=== PATIENT | female | born 1940 | race Caucasian/White ===

== ENCOUNTER 2021-05-18 18:22 | Inpatient (IN) | payer MEDICARE, SELFPAY ==
[2021-05-18 20:02] VITALS: BMI 23.3
[2021-05-18 20:04] VITALS: BP 121/75; PULSE 67; RESP 16; TEMP 36.3; O2SAT 97
--- NOTE | 2021-05-18 21:28 | HP.PCM_ITS ---
HPI - General General Date of Admission: 05/18/21 HPI Narrative 05/13/2021 DELICIA WATERMAN, is a 80 Female who presents to [facility] Emergency Department with fall. Fall, right shoulder fracture, dizziness. Several falls over last few months. Seen in [place] ER, fracture surgical neck left shoulder. Weak, unable to care for self. Feels dizzy when standing up. UA negative, TSH 139, patient stopped taking Synthroid. Check orthostatic vital signs for dizziness. Orthopedics recommended conservative treatment of left shoulder fracture. PT/OT for debility. 05/14/2021 Orthopedics recommends sling left shoulder fracture. 05/15/2021 Gradual mobilize as healing allows. Reduce Losartan foor orthostatic hypotension. 05/18/2021 Admit to TCU with debility, here for rehabilitation, strengthening, prior to discharge home alone. PFSH Allergy/AdvReac Type Severity Reaction Status Date / Time codeine AdvReac Nausea/Vom/ Verified 05/18/21 20:05 Diarrhea Family History (Updated 05/18/21 @ 21:[address] Edgardo Maldonado MD) Mother Diabetes Hypertension CAD (coronary artery disease) Osteoarthritis Father CAD (coronary artery disease) Osteoarthritis Sister Hypertension Surgical History (Updated 05/18/21 @ 21:[address] Edgardo Maldonado MD) History of appendectomy History of hysterectomy History of repair of rectocele Social History (Updated 05/18/21 @ 21:[address] Edgardo Maldonado MD) household members: none Smoking Status: Former smoker alcohol intake: current alcohol intake frequency: a few times a week Alcohol type: other details: Mixed drinks substance use type: does not use ROS Constitutional Constitutional: Denies chills, fever(s) or weight gain ENT HEENT: Denies headache(s), nasal congestion or nasal discharge Cardiovascular Cardiovascular: Denies chest pain or palpitations Respiratory/Chest Respiratory/Chest: Denies cough, excessive phlegm production or shortness of breath with exertion Gastrointestinal Gastrointestinal: Denies abdominal pain, nausea or vomiting Genitourinary Genitourinary: Denies dysuria Musculoskeletal Musculoskeletal: Denies joint pain or joint swelling Integumentary Integumentary: Denies rash or wounds Neurologic Neurologic: Denies focal weakness, numbness or tingling Psychiatric Psychiatric: Denies anxiety, auditory hallucinations, depression, homicidal idea tion or suicidal ideation Vital Signs Vital Signs Vital Signs: 05/18/21 18:48 05/18/21 20:04 Temperature 97.4 F L Temperature Source Temporal Pulse Rate 67 Pulse Rhythm Regular Pulse Strength Normal (2+) Respiratory Rate 16 Respiratory Effort Normal Non-Labored Respiratory Depth Normal Respiratory Pattern Normal Blood Pressure 121/75 H Blood Pressure Mean 90 Blood Pressure Source Monitor Blood Pressure Position Supine Blood Pressure Location Right Arm Pulse Ox 97 Oxygen Delivery Method Room Air Room Air Weight Weight: 62.596 kg Body Mass Index (BMI) 23.3 Physical Exam Const alert and oriented x3 General Appearance: cooperative HEENT normocephalic Eyes PERRL and EOMs intact bilaterally Neck supple, no JVD and no carotid bruits Resp normal respiratory effort, normal air movement and clear to auscultation bilaterally Cardio regular rate and regular rhythm GI normal to inspection, nondistended, normoactive bowel sounds, non-tender and non-distended Extremity normal capillary refill Extremity Narrative: Sling LUE. General Extremity: Negative for edema Skin no rashes or lesions noted General Skin Exam: no breakdown Psych affect normal Appearance: appropriate Results Lab / Micro Data Result Diagrams: 05/19/21 05:11 05/19/21 05:11 Assessment & Plan Assessment/Plan (1) Debility: (2) Fall: (3) Shoulder fracture, left: (4) Dizziness: (5) Hyponatremia: (6) Hypothyroidism: (7) Orthostatic hypotension: (8) Anemia: (9) Chronic obstructive pulmonary disease: (10) Gastrointestinal bleeding: (11) Hypertension: PLAN: 80 year old female with below past medical history hospitalized for fall, left shoulder fracture treated with sling, complicated by dizziness secondary to orthostatic hypotension, admitted to TCU with debility, here for rehabilitation, strengthening, prior to discharge home alone. * Debility - PT/OT. * Pain - Tylenol 1000mg q6h prn pain (1-5), Oxycodone 5mg q4h prn pain (6-10). * Bowel - Miralax 17gm daily, Senna/colace 1 tablet bid, Dulcolax 10mg daily prn. * Adult immunization - Administer prevnar 20, fluzone, covid19 vaccine as appropriate. * DVT prophylaxis - Hold, history GI bleeding. * Atrial fibrillation - Amiodarone 200mg daily, Aspirin 81mg daily. * Depression - Bupropion SR 100mg daily, Venlafaxine XR 75mg daily, stable chronic senior care use, GDR not recommended. * Calcium deficiency - Calcium 625mg daily. * Vitamin B12 deficiency - B12 1000mcg daily. * Tinea Corporis - Ketoconazole cream topical daily. * Hypothyroidism - Levothyroxine 50mcg daily, follow TSH, resident had stopped taking her Levothyroxine. * Hypertension - Losartan 25mg daily. * Hypomagnesemia - Magnesium Chloride 128mg bid. * Nausea - Ondansetron 8mg q8h prn. * GERD - Pantoprazole 20mg daily. * Leg cramps - Vitamin B complex 1 capsule daily. * Hyponatremia - Monitor.
[2021-05-19 05:34] LABS: Absolute Lymphocyte Count 0.31 X10^3/uL (0.83-4.51); Absolute Neutrophil Count 4.6 X10^3/uL (2.0-7.7); Basophil# 0.02 X10^3/uL; Basophil% 0.4 % (0-1); Eosinophil# 0.11 X10^3/uL; Hematocrit 26.4 % (37-47); Lymphocyte # 0.31 X10^3/ul (0.83-4.51); Lymphocyte % 5.6 % (19-41); Mean Corp Hgb Conc 34.1 g/dL (32-36); Mean Corpuscular Hgb 31.3 pg (27.0-32.0); Mean Corpuscular Volume 91.7 fL (81-99); Mean Platelet Vol. 8.9 fl (6.2-12.0); Monocyte# 0.39 X10^3/uL; Monocyte% 7.1 % (0-10); NRBC Flagged by Analyzer 0 % (0-5); Neutrophil # 4.61 X10^3/uL (2.7-7.7); Neutrophil % 83.8 % (47-70); POSITIVE DIFFERENTIAL YES; Platelet Count 214 K/mm3 (150-450); RBC Distribution Width CV 13.9 % (11.6-14.6); Red Blood Count 2.88 M/mm3 (4.2-5.4); White Blood Count 5.5 K/mm3 (4.4-11.0)
[2021-05-19 05:42] LABS: Differential Indicated SCAN CRITERIA MET
[2021-05-19 05:58] LABS: Anion Gap 7 (5-15); BUN 29 mg/dL (7-18); BUN/Creat Ratio 39.6 RATIO (10-20); Calcium,Total 8.4 mg/dL (8.5-10.1); Chloride 95 mmol/L (98-107); Creatinine, Serum 0.73 mg/dL (0.55-1.02); EST Glomerular Filtration Rate 81 mL/min (>60); Est Glom Filt Rate - Afr Amer 98 mL/min (>60); Glucose 106 mg/dL (74-106); Potassium 4.1 mmol/L (3.5-5.1); Sodium Level 128 mmol/L (136-145)
[2021-05-19] MEDS: oxyCODONE 5 MG Tablet PO (06:39)
[2021-05-19] MEDS: Venlafaxine XR 75 MG Capsule PO (06:41)
[2021-05-19] MEDS: Senna/Docusate Sodium 1 Tablet PO ×2 (06:41→17:04)
[2021-05-19] MEDS: buPROPion (SR) 100 MG TABLET.SA PO (06:42)
[2021-05-19] MEDS: Losartan Potassium 25 MG Tablet PO (06:42)
[2021-05-19] MEDS: Pantoprazole Sodium 40 MG Tablet PO (06:43)
[2021-05-19] MEDS: Polyethylene Glycol 3350 17 GM PACKET PO (06:43)
[2021-05-19] MEDS: Levothyroxine 50 MCG Tablet PO (06:43)
--- NOTE | 2021-05-19 06:55 | NURSING ---
Pt does not recall an order for ketoconazole cream in the past. Denies that staff from outside hospital was applying an type of cream. Will hold at this time.
[2021-05-19 07:42] VITALS: BP 130/67; PULSE 67
[2021-05-19] MEDS: Amiodarone 200 MG Tablet PO (08:40)
[2021-05-19] MEDS: Vitamin B Comp W-C Capsule 1 CAP PO (08:40)
[2021-05-19] MEDS: Aspirin 81 MG TAB.CHEW PO (08:40)
[2021-05-19] MEDS: Magnesium Chloride 64 MG Delay Rel.Tablet 128 MG PO ×2 (08:41→17:04)
[2021-05-19] MEDS: Cyanocobalamin 500 MCG Tablet 1000 MCG PO (08:41)
[2021-05-19 08:48] VITALS: BP 112/61; PULSE 68
--- NOTE | 2021-05-19 10:06 | WOUNDNOTE ---
Was asked by nursing to see patient d/t colostomy. Pt states she typically cares for the appliance herself. states she has had the colostomy for approx 1 year. states the appliance is changed every 3-4 days. removed the ostomy appliance. there was a small amount of soft brown stool noted in the appliance. stoma is pink and moist. peristomal skin is intact. stoma is well budded. cleansed skin with warm water. pat dry. applied a new two piece [place] appliance. pt tolerated well. plan to use the floor stock appliances which are very similar to what the patient uses at home. pt agreeable. no further needs or concerns voiced at this time.
[2021-05-19] MEDS: Tuberculin,Purif.prot.deriv. 50 TU/ML Vial 0.1 ML ID (10:07)
--- NOTE | 2021-05-19 11:24 | NURSING ---
Resident educated on the COVID 19 Vaccine and does not want to receive it.
--- NOTE | 2021-05-19 11:56 | CASEMGMT ---
Social Work SW met w/pt in room, assessment completed. Daughter Munira arrived just as SW was completing assessment. SW reviewed CODE status, pt asked to have it changed to DNRCC-A, RN made aware. MOLST form completed, communication to physician, placed in chart. Pt's goal is to return home alone, is open to home health care. SW did educate pt that the next review date with her insurance is 05/21/21, and insurance will determine at that time how much longer they will authorize, SW explained the number of days pt will be here is dependent upon how long insurance authorizes. Pt states understanding. SW did also educate pt that she will have a plan of care meeting to review progress and goals, and her family can attend in person or via phone, she will be notified of the time for this meeting. Pt states understanding. SW will continue to follow to develop appropriate discharge plan. LYNDA Cortes
[2021-05-19 14:21] VITALS: BP 119/68; PULSE 73; RESP 16; TEMP 36.9; O2SAT 97
--- NOTE | 2021-05-19 16:36 | CHAPLAIN ---
Type of Pastoral Visit _x__ Initial Visit ___ Follow-up Visit ___ On-call Visit ___ General Patient Visit ___ Spiritual Assessment ___ Family Conference ___ Bereavement ___ Rapid Response ___ Code Blue ___ Other (describe below) Pastoral Care Referral From _x__ Patient ___ Family ___ Nurse ___ Physician ___ Thermocouple Tester ___ Drapery Supervisor ___ Other (describe below) Sacrament/Intervention _x__ Active listening ___ Anointing ___ Lutheran ___ Bereavement ___ Communion _x__ Nichole exploration ___ _x__ Life review _x__ Prayer ___ Reconciliation ___ Sacrament of Sick ___ Supportive presence ___ Wedding ___ Other (describe below) Pastoral Comments patient is welcoming and gives some of her story, life review, and nichole perspective; pt does have family that is local for support; pt was in 2020 but presents self as doing pretty well through this time; pt realizes need for strengthing and hopes to have success in therapy; pt is open to spiritual care support and welcomes future visits
[2021-05-19 21:56] VITALS: BP 128/70; PULSE 74; RESP 16; TEMP 36.6; O2SAT 97
[2021-05-20 05:26] VITALS: BP 127/71; PULSE 71; RESP 16; TEMP 36.1; O2SAT 97
[2021-05-20] MEDS: Polyethylene Glycol 3350 17 GM PACKET PO (05:33)
[2021-05-20] MEDS: Losartan Potassium 25 MG Tablet PO (05:33)
[2021-05-20] MEDS: Venlafaxine XR 75 MG Capsule PO (05:34)
[2021-05-20] MEDS: Pantoprazole Sodium 40 MG Tablet PO (05:34)
[2021-05-20] MEDS: buPROPion (SR) 100 MG TABLET.SA PO (05:34)
[2021-05-20] MEDS: Levothyroxine 50 MCG Tablet PO (05:34)
[2021-05-20] MEDS: Acetaminophen 500 MG Tablet 1000 MG PO (05:34)
[2021-05-20] MEDS: Senna/Docusate Sodium 1 Tablet PO ×2 (05:34→17:34)
[2021-05-20] MEDS: Vitamin B Comp W-C Capsule 1 CAP PO (07:50)
[2021-05-20] MEDS: Cyanocobalamin 500 MCG Tablet 1000 MCG PO (07:50)
[2021-05-20] MEDS: Amiodarone 200 MG Tablet PO (07:50)
[2021-05-20] MEDS: Magnesium Chloride 64 MG Delay Rel.Tablet 128 MG PO ×2 (07:51→17:34)
[2021-05-20] MEDS: Aspirin 81 MG TAB.CHEW PO (07:51)
[2021-05-20 07:52] VITALS: BP 136/76; PULSE 73
[2021-05-20 10:30] VITALS: PULSE 68; RESP 18; O2SAT 98
[2021-05-20] MEDS: oxyCODONE 5 MG Tablet PO (11:40)
[2021-05-20 14:34] VITALS: BP 124/68; PULSE 74; RESP 16; TEMP 36.7; O2SAT 97
--- NOTE | 2021-05-20 16:22 | NURSING ---
Daughter Munira up to nurses station requesting Dr patricio with Dr. Choe to be cancelled at this time and she would reschedule the maricarment later in the future. Dr. Choe's office notified.
[2021-05-20] MEDS: Bisacodyl 5 MG Tablet 10 MG PO (17:33)
--- NOTE | 2021-05-20 18:07 | PCM.PN.RX ---
Progress Note - Pharmacy Subjective: [] TCU Admission Objective: Allergies codeine Adverse Reaction (Verified 05/18/21 20:05) Nausea/Vom/Diarrhea Current Medications Generic Name Dose Route Start Last Admin Trade Name Freq PRN Reason Stop Dose Admin Acetaminophen 1,000 mg 05/18/21 22:00 05/20/21 05:34 Acetaminophen 500 Mg Tablet PO 1,000 mg Q6H PRN PRN Administration Pain Score 1-5 Amiodarone HCl 200 mg 05/19/21 08:00 05/20/21 07:50 Amiodarone 200 Mg Tablet PO 200 mg DAILYCM LAYA Administration Aspirin 81 mg 05/19/21 08:00 05/20/21 07:51 Aspirin 81 Mg Tab.Chew PO 81 mg BREAKFAST LAYA Administration Bisacodyl 10 mg 05/18/21 21:58 05/20/21 17:33 Bisacodyl 5 Mg Tablet PO 10 mg DAILY PRN Administration Constipation Bupropion HCl 100 mg 05/19/21 06:00 05/20/21 05:34 Bupropion (Sr) 100 Mg Tablet.Sa PO 100 mg DAILY LAYA Administration Calcium Polycarbophil 625 mg 05/19/21 06:00 05/20/21 05:35 Calcium Polycarbophil 625 Mg Tablet PO 625 mg DAILY LAYA Administration Cyanocobalamin 1,000 mcg 05/19/21 08:00 05/20/21 07:50 Cyanocobalamin 500 Mcg Tablet PO 1,000 mcg BREAKFAST LAYA Administration Levothyroxine Sodium 50 mcg 05/19/21 06:00 05/20/21 05:34 Levothyroxine 50 Mcg Tablet PO 50 mcg DAILY@0600 LAYA Administration Losartan Potassium 25 mg 05/19/21 06:00 05/20/21 05:33 Losartan Potassium 25 Mg Tablet PO 25 mg DAILY LAYA Administration Magnesium Chloride 128 mg 05/19/21 08:00 05/20/21 17:34 Magnesium Chloride 64 Mg Delay Rel.Tablet PO 128 mg BIDCM LAYA Administration Multivitamins 1 capsule 05/19/21 08:00 05/20/21 07:50 Vitamin B Comp W-C Capsule PO 1 capsule DAILYCM LAYA Administration Ondansetron HCl 8 mg 05/18/21 21:06 Ondansetron 8 Mg Tablet PO Q8H PRN PRN NAUSEA/VOMITING Oxycodone HCl 5 mg 05/18/21 22:00 05/20/21 11:40 Oxycodone 5 Mg Tablet PO 5 mg Q4H PRN PRN Administration Pain Score 6-10 Pantoprazole Sodium 40 mg 05/19/21 06:00 05/20/21 05:34 Pantoprazole Sodium 40 Mg Tablet PO 40 mg DAILY LAYA Administration Polyethylene Glycol 17 gm 05/19/21 06:00 05/20/21 05:33 Polyethylene Glycol 3350 17 Gm Packet PO 17 gm DAILY LAYA Administration Senna/Docusate Sodium 1 tablet 05/18/21 22:00 05/20/21 17:34 Senna/Docusate Sodium 1 Tablet PO 1 tablet BID LAYA Administration Tuberculin PPD 0.1 ml 05/26/21 10:00 Tuberculin,Purif.Prot.Deriv. 50 Tu/Ml Vial ID 05/26/21 10:01 X1 ONE Venlafaxine HCl 75 mg 05/19/21 06:00 05/20/21 05:34 Venlafaxine Xr 75 Mg Capsule PO 75 mg DAILY LAYA Administration Problem List Hypertension (Chronic) Gastrointestinal bleeding (Acute) Chronic obstructive pulmonary disease (Chronic) Anemia (Acute) Orthostatic hypotension (Acute) Hypothyroidism (Acute) Hyponatremia (Acute) Dizziness (Acute) Shoulder fracture, left (Acute) Fall (Acute) Debility (Acute) Vital Signs Temp Pulse Resp BP Pulse Ox 98.1 F 74 16 124/68 H 97 05/20/21 14:34 05/20/21 14:34 05/20/21 14:34 05/20/21 14:34 05/20/21 14:34 Oxygen Delivery Method Room Air Weight: 63.458 kg Body Mass Index (BMI) 23.3 Sodium 128 mmol/L (136-145) L 05/19/21 05:11 Potassium 4.1 mmol/L (3.5-5.1) 05/19/21 05:11 Chloride 95 mmol/L (98-107) L 05/19/21 05:11 Carbon Dioxide 26.0 mmol/L (21.0-32.0) 05/19/21 05:11 Anion Gap 7 (5-15) 05/19/21 05:11 BUN 29 mg/dL (7-18) H 05/19/21 05:11 Creatinine 0.73 mg/dL (0.55-1.02) 05/19/21 05:11 Est GFR (MDRD) Af Amer 98 mL/min (>60) 05/19/21 05:11 Est GFR (MDRD) Non-Af 81 mL/min (>60) 05/19/21 05:11 BUN/Creatinine Ratio 39.6 RATIO (10-20) H 05/19/21 05:11 Glucose 106 mg/dL (74-106) 05/19/21 05:11 Assessment/Plan: 1) Pain: Acetaminophen 1000mg po q6h prn for pain 1-5, Oxycodone 5mg po q4h prn for pain 6-10. Please continue to monitor prn usage and for signs/symptoms of increased pain. --Prn note: There has been 1 acetaminophen administration, and 2 oxycodone administrations to date 2) GERD: Pantoprazole 40mg po daily. Please continue to monitor for signs/symptoms of GERD 3) Hypothyroidism: Levothyroxine 50mcg po daily. See physicians note in H+P about following TSH. If pt is here in June check for TSH 4) Hypertension: Losartan 25mg po daily. Pt's K+ is 4.1, BUN is 29, and SrCr is 0.73. Please continue to monitor labs. Pt's average BP is 124.6/69.5. Please continue to monitor BP 5) AFib: Amiodarone 200mg po daily, Aspirin 81mg po with breakfast. Pt's average pulse rate is 70.6, pulse rhythm is regular (x1 irregular rhythm), and pulse strength is normal (2+). Please continue to monitor pt's pulse Psychotropic Medications: Venlafaxine XR 75mg po daily for depression. See physicians note in H+P about GDR Bupropion SR 100mg po daily. See physicians note in H+P about GDR Unnecessary Medications: Bowel Regimen: Bisacodyl 10mg po daily prn for constipation, Miralax 17gm po daily, Senna/Docusate 1 tablet po bid. Please continue to monitor prn usage and for signs/symptoms of constipation/diarrhea. --Prn note: There has been 1 administration to date Date of Note:: 05/20/21
[2021-05-21] MEDS: Losartan Potassium 25 MG Tablet PO (05:59)
[2021-05-21] MEDS: Pantoprazole Sodium 40 MG Tablet PO (05:59)
[2021-05-21] MEDS: Venlafaxine XR 75 MG Capsule PO (05:59)
[2021-05-21] MEDS: Levothyroxine 50 MCG Tablet PO (05:59)
[2021-05-21] MEDS: Polyethylene Glycol 3350 17 GM PACKET PO (05:59)
[2021-05-21] MEDS: buPROPion (SR) 100 MG TABLET.SA PO (05:59)
[2021-05-21] MEDS: Bisacodyl 5 MG Tablet 10 MG PO (06:00)
[2021-05-21] MEDS: Senna/Docusate Sodium 1 Tablet PO (06:00)
[2021-05-21] MEDS: Acetaminophen 500 MG Tablet 1000 MG PO (06:12)
[2021-05-21 06:17] VITALS: BP 142/82; PULSE 72; RESP 18; TEMP 35.9; O2SAT 97
[2021-05-21] MEDS: Magnesium Citrate 300 ML 150 ML PO (09:03)
[2021-05-21] MEDS: Aspirin 81 MG TAB.CHEW PO (09:04)
[2021-05-21] MEDS: Cyanocobalamin 500 MCG Tablet 1000 MCG PO (09:04)
[2021-05-21] MEDS: Amiodarone 200 MG Tablet PO (09:04)
[2021-05-21] MEDS: Magnesium Chloride 64 MG Delay Rel.Tablet 128 MG PO ×2 (09:04→17:18)
[2021-05-21] MEDS: Vitamin B Comp W-C Capsule 1 CAP PO (09:05)
--- NOTE | 2021-05-21 09:09 | CASEMGMT ---
Social Work IDT met with patient and dtr for care plan meeting. Discussed patient's progress in PT/OT and nursing. Explained [facility] insurance with NRD 05/21 and continued stay is not guaranteed with each review. The goal is for pt to return home alone. However, pt is NWBS LUE. Pt due to have f/u appt with ortho Dr to assess changes in WBS. Pt is max/dep for ADLs. Discussed alternative DC plan until pt can DC home. Explained SNF stay either private pay or Medicaid, if eligible. Explained [facility] is the other [facility] that is in network with MMO to get part B therapies. Family lives in [place] and prefer [facility]. Provided SNF list with Medicare data. Pt/dtr agreeable to all of the facilities but [facility], to see if any are in network. Pt might qualify for [facility]. Provided YOLANDA maricarmen. Notified DC Meat Counter Worker to contact SNFs. SW to continue to follow. Jessica Horton, WOOD CUTTER BUFFER INFLATED PAD
--- NOTE | 2021-05-21 10:35 | CASEMGMT ---
Addendum entered by Jennifer Castro 05/21/21 12:56: Neymar from [facility] called back. They are currently full and no accepting anyone. Neymar took patients name and put her on a list. When patient is ready for d/c we can contact Neymar again to see if they are still full. Original Note: Discharge Hydrogen Cell Tender Called Griselda at [facility]. They are taking referrals day by day. She could not tell me if there was a bed available. Faxed referral over and she will review. Called Mignon at [facility]. They are not taking referrals at this time due to the facility being under an outbreak. I left a at [facility] for admissions to call me back. Nothing has been faxed. Jennifer Castro Discharge Hydrogen Cell Tender
--- NOTE | 2021-05-21 12:44 | NURSING ---
This nurse spoke with Daughter today and daughter informed this nurse that she feels that pt is unable to tolerate traveling to [place] for her orthopedic appointment and requesting to have ortho consulted to the floor to see her. Pt was to see Dr. Choe but appointment was cancelled the other day. Дмитрий's office was called to see if Asiya is an established patient at that office and office staff stated she was not and Dr. Choe had not seen her yet it was a follow-up from [facility] emergency room. Message left for Dr. Maldonado to see if he would like to consult ortho to come see her on the floor instead of pt having to travel to an office.
--- NOTE | 2021-05-21 14:58 | CASEMGMT ---
Discharge Electronics Specialist Reached out to [facility]. They are looking at her referral. They are booked until the end of next week. Admissions will stay in touch. Will follow up. ' Jennifer Castro Discharge Electronics Specialist
[2021-05-21 15:15] VITALS: BP 110/72; PULSE 74; RESP 16; TEMP 36.3; O2SAT 98
--- NOTE | 2021-05-21 17:08 | CASEMGMT ---
Social Work Dtr present in room. Updated pt and dtr about the SNFs and [facility] only being able to accept if she can pay privately the first month. Encouraged dtr to get information on the trust pt has. Dtr stated pt most likely will not qualify for [facility] and will need to pay privately. Explained on average SNFs are $8,000/month up front. Dtr expressed understanding. Explained if that is the case, to notify this worker as [facility] would be able to accept and that could change the mind of other facilities. Dtr agrees. SW to continue to follow. Jessica Horton, ROBERT JOHNSONW
[2021-05-22] MEDS: oxyCODONE 5 MG Tablet PO ×2 (01:12→11:00)
[2021-05-22] MEDS: Venlafaxine XR 75 MG Capsule PO (05:59)
[2021-05-22] MEDS: Losartan Potassium 25 MG Tablet PO (05:59)
[2021-05-22] MEDS: Pantoprazole Sodium 40 MG Tablet PO (06:00)
[2021-05-22] MEDS: Polyethylene Glycol 3350 17 GM PACKET PO (06:00)
[2021-05-22] MEDS: Senna/Docusate Sodium 1 Tablet PO ×2 (06:01→17:50)
[2021-05-22] MEDS: Levothyroxine 50 MCG Tablet PO (06:01)
[2021-05-22] MEDS: buPROPion (SR) 100 MG TABLET.SA PO (06:01)
[2021-05-22] MEDS: Acetaminophen 500 MG Tablet 1000 MG PO (06:04)
[2021-05-22] MEDS: Vitamin B Comp W-C Capsule 1 CAP PO (08:00)
[2021-05-22] MEDS: Magnesium Chloride 64 MG Delay Rel.Tablet 128 MG PO ×2 (08:00→17:50)
[2021-05-22] MEDS: Amiodarone 200 MG Tablet PO (08:01)
[2021-05-22] MEDS: Aspirin 81 MG TAB.CHEW PO (08:01)
[2021-05-22] MEDS: Cyanocobalamin 500 MCG Tablet 1000 MCG PO (08:01)
[2021-05-22 09:25] VITALS: O2SAT 97
[2021-05-22 13:45] VITALS: BP 118/58; PULSE 68; RESP 16; TEMP 35.8; O2SAT 96
--- NOTE | 2021-05-22 17:58 | NURSING ---
Addendum entered by Robina Mandel 05/23/21 09:19: dr nagy returned call, orders entered for shoulder & scapula xrays Original Note: Dr. Nagy Consulted for Left humoral head fracture. Need to call Dr. Nathan's office to clarify X-ray orders. Nurse that I talked to stated just a shoulder X-ray of the left shoulder. Need to clarify to see if pt needs a Humorous X-ray as well. LVM but did not get a call back.
[2021-05-23] MEDS: Losartan Potassium 25 MG Tablet PO (05:04)
[2021-05-23] MEDS: Senna/Docusate Sodium 1 Tablet PO ×2 (05:04→16:43)
[2021-05-23] MEDS: Polyethylene Glycol 3350 17 GM PACKET PO (05:04)
[2021-05-23] MEDS: Venlafaxine XR 75 MG Capsule PO (05:04)
[2021-05-23] MEDS: Levothyroxine 50 MCG Tablet PO (05:04)
[2021-05-23] MEDS: buPROPion (SR) 100 MG TABLET.SA PO (05:04)
[2021-05-23] MEDS: Pantoprazole Sodium 40 MG Tablet PO (05:04)
--- NOTE | 2021-05-23 09:18 | RAD_ITS ---
STUDY: X-RAY - LEFT SHOULDER REASON FOR EXAM: Left shoulder pain, left shoulder injury 2-3 weeks ago. TECHNIQUE: 2 view(s) of the shoulder. COMPARISON: None. FINDINGS: Normal glenohumeral articulation. There is capsular calcification of the acromioclavicular joint. Normal acromion. There is an impacted fracture of the surgical neck of the humerus and a nondisplaced greater tuberosity fracture. There is soft tissue swelling. Normal visualized pulmonary apex. RAD/Shoulder min 2 Views IMPRESSION: Proximal humeral fracture. Electronically Signed: Rex Noonan MD at 11:18 EST ,
[2021-05-23 09:40] VITALS: BP 122/61; PULSE 73
[2021-05-23] MEDS: Cyanocobalamin 500 MCG Tablet 1000 MCG PO (09:41)
[2021-05-23] MEDS: Vitamin B Comp W-C Capsule 1 CAP PO (09:41)
[2021-05-23] MEDS: Magnesium Chloride 64 MG Delay Rel.Tablet 128 MG PO ×2 (09:41→16:42)
[2021-05-23] MEDS: Aspirin 81 MG TAB.CHEW PO (09:41)
[2021-05-23] MEDS: Amiodarone 200 MG Tablet PO (09:42)
[2021-05-23] MEDS: oxyCODONE 5 MG Tablet PO (11:05)
--- NOTE | 2021-05-23 11:16 | PCM.CONS.GEN ---
Assessment & Plan Assessment/Plan (1) Fracture of surgical neck of left humerus: QUALIFIERS: Encounter type: initial encounter Fracture type: closed Fracture morphology: 2-part Fracture alignment: displaced Qualified Code(s): S42.222A - 2-part displaced fracture of surgical neck of left humerus, initial encounter for closed fracture PLAN: 80-year-old female status post ground-level fall sustained 05/13/2021. Left surgical neck fracture with comminution and impaction. Continue conservative care as previously recommended by other orthopedic group. Recommend elbow range of motion 3 times a day and pendulum exercises of the shoulder when tolerable. No active range of motion of the shoulder. Encourage finger wrist and hand range of motion. Follow-up 4 weeks with repeat x-ray and likely progress to active range of motion. HPI Consult Data Date of Consult: 05/23/21 HPI Narrative HPI Narrative: DELICIA WATERMAN, is a 80 F who presents for originally presented to [facility] ER after a slip and ice on fall 05/13/2021 injuring her left shoulder. She was seen by orthopedics there Dr. Yobani Nguyen who recommended sling immobilization and no surgical intervention. She was transferred to the transitional care unit at [facility] I was consulted in regards to left shoulder fracture. Patient's pain is controlled although she is still having significant left shoulder pain. She has no complaints of numbness or tingling or pain elsewhere in the left upper extremity. She has been using a sling and has been coming out rarely for elbow range of motion. PFSH Allergy/AdvReac Type Severity Reaction Status Date / Time codeine AdvReac Nausea/Vom/ Verified 05/18/21 20:05 Diarrhea Family History (Updated 05/18/21 @ 21:[address] Edgardo Maldonado MD) Mother Diabetes Hypertension CAD (coronary artery disease) Osteoarthritis Father CAD (coronary artery disease) Osteoarthritis Sister Hypertension Surgical History (Updated 05/18/21 @ 21:[address] Edgardo Maldonado MD) History of appendectomy History of hysterectomy History of repair of rectocele Social History (Updated 05/18/21 @ 21:[address] Edgardo Maldonado MD) household members: none Smoking Status: Former smoker alcohol intake: current alcohol intake frequency: a few times a week Alcohol type: other details: Mixed drinks substance use type: does not use Physical Exam Const alert, oriented x3 and no apparent distress Extremity Extremity Narrative: Left upper extremity in sling there is ecchymosis in the anterior arm. Compartments are soft. She has intact sensation over the axillary nerve radial median ulnar nerves intact 2 out of 4 radial pulse. There is no significant swelling in the upper extremity. Lab / Micro Data Result Diagrams: 05/19/21 05:11 05/19/21 05:11
[2021-05-23 11:33] VITALS: BP 91/60; PULSE 72; RESP 16; TEMP 35.8; O2SAT 96
--- NOTE | 2021-05-23 11:51 | CASEMGMT ---
Addendum entered by Jessica Horton 05/23/21 16:09: Received return call from [facility]. Answered questions and faxed over notes per request. Addendum entered by Jessica Horton 05/23/21 15:03: [facility] requested dtr contact their billing office to ensure they can pay privately. Dtr left message for this worker, family no longer wants [facility]. Requested a new referral to [facility] as dtr spoke to Neymar Kramer and stated they have a bed opening. Left message with Neymar at [facility] inquiring. Left message with dtr to update on phone call and NRD 05/28. SW to continue to follow. Addendum entered by Jessica Horton 05/23/21 12:26: Pt confirmed she would like to go to [facility]. Left message with admissions to confirm acceptance now pt is private pay. NRD 05/28. Will continue to follow. Original Note: Social Work BIMS and PHQ-9 completed for MDS assessment. ROBERT ChilelW
[2021-05-23 16:40] VITALS: BP 133/82
[2021-05-23] MEDS: Acetaminophen 500 MG Tablet 1000 MG PO (22:04)
[2021-05-24] MEDS: oxyCODONE 5 MG Tablet PO ×3 (01:22→21:09)
[2021-05-24] MEDS: Polyethylene Glycol 3350 17 GM PACKET PO (05:35)
[2021-05-24] MEDS: buPROPion (SR) 100 MG TABLET.SA PO (05:36)
[2021-05-24] MEDS: Venlafaxine XR 75 MG Capsule PO (05:36)
[2021-05-24] MEDS: Levothyroxine 50 MCG Tablet PO (05:36)
[2021-05-24] MEDS: Senna/Docusate Sodium 1 Tablet PO ×2 (05:36→16:12)
[2021-05-24] MEDS: Losartan Potassium 25 MG Tablet PO (05:36)
[2021-05-24] MEDS: Pantoprazole Sodium 40 MG Tablet PO (05:36)
[2021-05-24] MEDS: Vitamin B Comp W-C Capsule 1 CAP PO (08:18)
[2021-05-24] MEDS: Aspirin 81 MG TAB.CHEW PO (08:18)
[2021-05-24] MEDS: Cyanocobalamin 500 MCG Tablet 1000 MCG PO (08:18)
[2021-05-24] MEDS: Amiodarone 200 MG Tablet PO (08:18)
[2021-05-24] MEDS: Magnesium Chloride 64 MG Delay Rel.Tablet 128 MG PO ×2 (08:18→16:12)
[2021-05-24 14:23] VITALS: BP 110/68; PULSE 69; RESP 16; TEMP 36.8; O2SAT 97
[2021-05-24] MEDS: Acetaminophen 500 MG Tablet 1000 MG PO (21:09)
[2021-05-25 06:16] VITALS: BP 153/83; PULSE 67
[2021-05-25] MEDS: Acetaminophen 500 MG Tablet 1000 MG PO ×2 (06:21→13:42)
[2021-05-25] MEDS: buPROPion (SR) 100 MG TABLET.SA PO (06:22)
[2021-05-25] MEDS: Venlafaxine XR 75 MG Capsule PO (06:22)
[2021-05-25] MEDS: Pantoprazole Sodium 40 MG Tablet PO (06:22)
[2021-05-25] MEDS: Senna/Docusate Sodium 1 Tablet PO ×2 (06:22→18:14)
[2021-05-25] MEDS: Levothyroxine 50 MCG Tablet PO (06:23)
[2021-05-25] MEDS: Losartan Potassium 25 MG Tablet PO (06:23)
[2021-05-25] MEDS: Polyethylene Glycol 3350 17 GM PACKET PO (06:23)
[2021-05-25] MEDS: Aspirin 81 MG TAB.CHEW PO (08:13)
[2021-05-25] MEDS: Vitamin B Comp W-C Capsule 1 CAP PO (08:13)
[2021-05-25] MEDS: Cyanocobalamin 500 MCG Tablet 1000 MCG PO (08:14)
[2021-05-25] MEDS: Magnesium Chloride 64 MG Delay Rel.Tablet 128 MG PO ×2 (08:14→18:14)
[2021-05-25] MEDS: Amiodarone 200 MG Tablet PO (08:14)
[2021-05-25 15:28] VITALS: BP 116/58; PULSE 75; RESP 16; TEMP 36.3; O2SAT 97
[2021-05-25] MEDS: oxyCODONE 5 MG Tablet PO (22:59)
[2021-05-26 05:39] LABS: Absolute Lymphocyte Count 0.39 X10^3/uL (0.83-4.51); Absolute Neutrophil Count 4.3 X10^3/uL (2.0-7.7); Basophil# 0.04 X10^3/uL; Basophil% 0.7 % (0-1); Eosinophil# 0.19 X10^3/uL; Eosinophils% 3.5 % (0-5); Hematocrit 29.9 % (37-47); Hemoglobin 10.3 g/dL (12.0-15.0); Lymphocyte # 0.39 X10^3/ul (0.83-4.51); Lymphocyte % 7.3 % (19-41); Mean Corp Hgb Conc 34.4 g/dL (32-36); Mean Corpuscular Hgb 31.7 pg (27.0-32.0); Mean Platelet Vol. 8.5 fl (6.2-12.0); Monocyte# 0.37 X10^3/uL; Monocyte% 6.9 % (0-10); NRBC Flagged by Analyzer 0 % (0-5); Neutrophil # 4.31 X10^3/uL (2.7-7.7); Neutrophil % 80.5 % (47-70); POSITIVE DIFFERENTIAL YES; Platelet Count 272 K/mm3 (150-450); RBC Distribution Width CV 14.3 % (11.6-14.6); RBC Distribution Width SD 47.9 fl (35.1-43.9); Red Blood Count 3.25 M/mm3 (4.2-5.4); White Blood Count 5.4 K/mm3 (4.4-11.0)
[2021-05-26] MEDS: Pantoprazole Sodium 40 MG Tablet PO (05:56)
[2021-05-26] MEDS: Losartan Potassium 25 MG Tablet PO (05:56)
[2021-05-26] MEDS: Senna/Docusate Sodium 1 Tablet PO ×2 (05:56→17:46)
[2021-05-26] MEDS: Polyethylene Glycol 3350 17 GM PACKET PO (05:56)
[2021-05-26] MEDS: buPROPion (SR) 100 MG TABLET.SA PO (05:56)
[2021-05-26] MEDS: Levothyroxine 50 MCG Tablet PO (05:56)
[2021-05-26] MEDS: Venlafaxine XR 75 MG Capsule PO (05:56)
[2021-05-26 05:58] LABS: Anion Gap 3 (5-15); BUN 14 mg/dL (7-18); BUN/Creat Ratio 16.5 RATIO (10-20); Chloride 98 mmol/L (98-107); Creatinine, Serum 0.85 mg/dL (0.55-1.02); EST Glomerular Filtration Rate 69 mL/min (>60); Est Glom Filt Rate - Afr Amer 83 mL/min (>60); Estimated Creatinine Clearance 44.82 ml/min; Glucose 89 mg/dL (74-106); Potassium 4.6 mmol/L (3.5-5.1); Sodium Level 128 mmol/L (136-145)
[2021-05-26 06:00] LABS: Differential Indicated SCAN CRITERIA MET
[2021-05-26] MEDS: Cyanocobalamin 500 MCG Tablet 1000 MCG PO (08:07)
[2021-05-26] MEDS: Magnesium Chloride 64 MG Delay Rel.Tablet 128 MG PO ×2 (08:07→17:46)
[2021-05-26] MEDS: Amiodarone 200 MG Tablet PO (08:07)
[2021-05-26] MEDS: Aspirin 81 MG TAB.CHEW PO (08:07)
[2021-05-26] MEDS: Vitamin B Comp W-C Capsule 1 CAP PO (08:08)
[2021-05-26] MEDS: Tuberculin,Purif.prot.deriv. 50 TU/ML Vial 0.1 ML ID (09:15)
[2021-05-26] MEDS: oxyCODONE 5 MG Tablet PO ×2 (09:25→20:26)
--- NOTE | 2021-05-26 13:59 | NURSING ---
wound nurse in today and changed colostomy bag
--- NOTE | 2021-05-26 14:18 | WOUNDNOTE ---
Removed the ostomy appliance. there was a small amount of brown stool noted in the appliance. stoma remains pink and moist. peristomal skin is intact. cleansed the skin with warm water. pat dry. applied a new 2 piece [place] appliance. pt tolerated well.
[2021-05-26 15:18] VITALS: BP 127/70; PULSE 72; RESP 16; TEMP 36.1; O2SAT 98
[2021-05-26] MEDS: Acetaminophen 500 MG Tablet 1000 MG PO (20:26)
[2021-05-27] MEDS: Polyethylene Glycol 3350 17 GM PACKET PO (05:40)
[2021-05-27] MEDS: Levothyroxine 50 MCG Tablet PO (05:41)
[2021-05-27] MEDS: Venlafaxine XR 75 MG Capsule PO (05:41)
[2021-05-27] MEDS: Losartan Potassium 25 MG Tablet PO (05:41)
[2021-05-27] MEDS: Senna/Docusate Sodium 1 Tablet PO ×2 (05:41→17:39)
[2021-05-27] MEDS: Pantoprazole Sodium 40 MG Tablet PO (05:41)
[2021-05-27] MEDS: buPROPion (SR) 100 MG TABLET.SA PO (05:41)
[2021-05-27] MEDS: Aspirin 81 MG TAB.CHEW PO (08:34)
[2021-05-27] MEDS: Cyanocobalamin 500 MCG Tablet 1000 MCG PO (08:34)
[2021-05-27] MEDS: Vitamin B Comp W-C Capsule 1 CAP PO (08:35)
[2021-05-27] MEDS: Magnesium Chloride 64 MG Delay Rel.Tablet 128 MG PO ×2 (08:35→17:39)
[2021-05-27] MEDS: Amiodarone 200 MG Tablet PO (08:35)
[2021-05-27] MEDS: Ondansetron 8 MG Tablet PO (08:39)
[2021-05-27 08:46] VITALS: BP 108/63; PULSE 70
[2021-05-27] MEDS: Acetaminophen 500 MG Tablet 1000 MG PO (11:54)
[2021-05-27] MEDS: oxyCODONE 5 MG Tablet PO ×2 (11:54→22:04)
--- NOTE | 2021-05-27 13:47 | CASEMGMT ---
Addendum entered by Jessica Horton 05/27/21 14:23: Spoke with dtr and updated her on acceptance. Dtr will notify pt. Will await outcome from insurance update 05/28. Original Note: Social Work Spoke with Neymar at [facility] to follow up. Pt is accepted. The plan is for her to DC there when insurance issues DC private pay. Jessica Horton, ROBERT JOHNSONW
[2021-05-27 14:12] VITALS: BP 102/58; PULSE 66; RESP 16; TEMP 36.1; O2SAT 96
[2021-05-27 22:00] VITALS: PULSE 67; RESP 16; O2SAT 96
--- NOTE | 2021-05-28 04:16 | PCA ---
went to put dentures away and couldnt find pt partial or denture cup
[2021-05-28] MEDS: Senna/Docusate Sodium 1 Tablet PO ×2 (06:30→17:26)
[2021-05-28] MEDS: Losartan Potassium 25 MG Tablet PO (06:30)
[2021-05-28] MEDS: Levothyroxine 50 MCG Tablet PO (06:31)
[2021-05-28] MEDS: oxyCODONE 5 MG Tablet PO ×2 (06:31→19:59)
[2021-05-28] MEDS: Venlafaxine XR 75 MG Capsule PO (06:31)
[2021-05-28] MEDS: Pantoprazole Sodium 40 MG Tablet PO (06:31)
[2021-05-28] MEDS: Polyethylene Glycol 3350 17 GM PACKET PO (06:31)
[2021-05-28] MEDS: buPROPion (SR) 100 MG TABLET.SA PO (06:31)
[2021-05-28 06:42] VITALS: BP 140/70; PULSE 71; RESP 16; TEMP 36.2; O2SAT 96
[2021-05-28] MEDS: Vitamin B Comp W-C Capsule 1 CAP PO (08:45)
[2021-05-28] MEDS: Aspirin 81 MG TAB.CHEW PO (08:46)
[2021-05-28] MEDS: Magnesium Chloride 64 MG Delay Rel.Tablet 128 MG PO ×2 (08:46→17:26)
[2021-05-28] MEDS: Cyanocobalamin 500 MCG Tablet 1000 MCG PO (08:46)
[2021-05-28] MEDS: Amiodarone 200 MG Tablet PO (08:59)
[2021-05-28 09:01] VITALS: BP 84/46; PULSE 71
--- NOTE | 2021-05-28 09:02 | NURSING ---
PT BP LOW THIS MORNING. PT STATED SHE FEELS FINE. WILL RECHECK AND CONTINUE TO MONITOR.
[2021-05-28 12:53] VITALS: BP 95/51; PULSE 68; RESP 18; TEMP 36.3; O2SAT 95
[2021-05-28] MEDS: Acetaminophen 500 MG Tablet 1000 MG PO (13:03)
[2021-05-28 14:00] VITALS: PULSE 68; RESP 18; O2SAT 95
--- NOTE | 2021-05-28 20:05 | NURSING ---
Asked patient if she found her partial. Patient stated, I think my daughter may have taken it home. Called patient's daughter Munira. Munira stated she did take partial home. Patient told Munira it was bent and to just take it home.
[2021-05-29] MEDS: Levothyroxine 50 MCG Tablet PO (04:43)
[2021-05-29] MEDS: Losartan Potassium 25 MG Tablet PO (04:43)
[2021-05-29] MEDS: Venlafaxine XR 75 MG Capsule PO (04:43)
[2021-05-29] MEDS: Pantoprazole Sodium 40 MG Tablet PO (04:43)
[2021-05-29] MEDS: Senna/Docusate Sodium 1 Tablet PO ×2 (04:43→17:02)
[2021-05-29] MEDS: buPROPion (SR) 100 MG TABLET.SA PO (04:43)
[2021-05-29] MEDS: Polyethylene Glycol 3350 17 GM PACKET PO (04:43)
[2021-05-29] MEDS: oxyCODONE 5 MG Tablet PO ×2 (04:43→13:37)
[2021-05-29 04:49] VITALS: BP 124/71; PULSE 68
--- NOTE | 2021-05-29 07:47 | NURSING ---
Addendum entered by Rissa Verma 05/29/21 09:35: Office aware of pt cancelling appointment, pt states she would just f/u after discharge, daughter Munira also aware. Original Note: Pt refusing to go to Helicopter [facility] appointment stating she just does not feel like it. Pt educated on importance of keeping up with her medical care, pt verbalized understanding and continued to refuse. [facility] called and transfer cancelled.
[2021-05-29] MEDS: Vitamin B Comp W-C Capsule 1 CAP PO (08:36)
[2021-05-29] MEDS: Amiodarone 200 MG Tablet PO (08:36)
[2021-05-29] MEDS: Aspirin 81 MG TAB.CHEW PO (08:36)
[2021-05-29] MEDS: Cyanocobalamin 500 MCG Tablet 1000 MCG PO (08:36)
[2021-05-29] MEDS: Magnesium Chloride 64 MG Delay Rel.Tablet 128 MG PO ×2 (08:36→17:02)
--- NOTE | 2021-05-29 11:24 | MDS.RN ---
Information for the mds was obtained from review of the clinical record, interview of resident, staff, and direct observation of resident's care.
[2021-05-29 14:05] VITALS: BP 150/58; PULSE 71; RESP 16; TEMP 35.7; O2SAT 97
[2021-05-29] MEDS: Acetaminophen 500 MG Tablet 1000 MG PO (20:04)
[2021-05-30 06:09] VITALS: BP 127/68
[2021-05-30] MEDS: Losartan Potassium 25 MG Tablet PO (06:11)
[2021-05-30] MEDS: Senna/Docusate Sodium 1 Tablet PO ×2 (06:11→16:20)
[2021-05-30] MEDS: Polyethylene Glycol 3350 17 GM PACKET PO (06:11)
[2021-05-30] MEDS: Levothyroxine 50 MCG Tablet PO (06:11)
[2021-05-30] MEDS: buPROPion (SR) 100 MG TABLET.SA PO (06:11)
[2021-05-30] MEDS: Venlafaxine XR 75 MG Capsule PO (06:11)
[2021-05-30] MEDS: Pantoprazole Sodium 40 MG Tablet PO (06:11)
[2021-05-30] MEDS: Aspirin 81 MG TAB.CHEW PO (08:33)
[2021-05-30] MEDS: Cyanocobalamin 500 MCG Tablet 1000 MCG PO (08:33)
[2021-05-30] MEDS: Amiodarone 200 MG Tablet PO (08:33)
[2021-05-30] MEDS: Magnesium Chloride 64 MG Delay Rel.Tablet 128 MG PO ×2 (08:33→16:19)
[2021-05-30] MEDS: Vitamin B Comp W-C Capsule 1 CAP PO (08:33)
--- NOTE | 2021-05-30 13:51 | NURSING ---
Colostomy bag changed at this time, moderate amount of stool noted, pt tolerated well and periskin intact
[2021-05-30 17:01] VITALS: BP 121/70; PULSE 70; RESP 16; TEMP 36.5; O2SAT 97
[2021-05-30] MEDS: Acetaminophen 500 MG Tablet 1000 MG PO (20:26)
[2021-05-31 03:25] VITALS: BP 112/70; PULSE 70; RESP 16; TEMP 36; O2SAT 97
[2021-05-31] MEDS: Senna/Docusate Sodium 1 Tablet PO ×2 (06:15→17:08)
[2021-05-31] MEDS: Polyethylene Glycol 3350 17 GM PACKET PO (06:15)
[2021-05-31] MEDS: Venlafaxine XR 75 MG Capsule PO (06:16)
[2021-05-31] MEDS: Losartan Potassium 25 MG Tablet PO (06:16)
[2021-05-31] MEDS: buPROPion (SR) 100 MG TABLET.SA PO (06:16)
[2021-05-31] MEDS: Pantoprazole Sodium 40 MG Tablet PO (06:16)
[2021-05-31] MEDS: Levothyroxine 50 MCG Tablet PO (06:16)
[2021-05-31] MEDS: Amiodarone 200 MG Tablet PO (08:31)
[2021-05-31] MEDS: Cyanocobalamin 500 MCG Tablet 1000 MCG PO (08:31)
[2021-05-31] MEDS: Aspirin 81 MG TAB.CHEW PO (08:32)
[2021-05-31] MEDS: Magnesium Chloride 64 MG Delay Rel.Tablet 128 MG PO ×2 (08:32→17:08)
[2021-05-31] MEDS: Vitamin B Comp W-C Capsule 1 CAP PO (08:33)
[2021-05-31] MEDS: Acetaminophen 500 MG Tablet 1000 MG PO (08:39)
[2021-05-31 08:44] VITALS: BP 108/58; PULSE 71
[2021-05-31 15:42] VITALS: BP 106/60; PULSE 70; RESP 15; TEMP 36.7; O2SAT 97
[2021-05-31] MEDS: oxyCODONE 5 MG Tablet PO ×2 (15:52→22:00)
[2021-05-31 21:45] VITALS: O2SAT 97
[2021-05-31 22:29] VITALS: BP 117/65; PULSE 69; RESP 16; TEMP 35.9; O2SAT 97
--- NOTE | 2021-05-31 22:30 | NURSING ---
Paged Dr. Maldonado w/ immediate return phone call. Updated on non-productive moist cough x 2 days. Refer to remainder of assessment for additional symptoms. New New order received for CXR PA and Kevin Jose as directed to start tonight, Albuterol 2.5mg/3ml aerosols every 2 hours as needed for shortness of breath or wheeze, and Mucinex 600 mg po BID x 5 days. Orders read back and verified.
--- NOTE | 2021-05-31 22:40 | RAD_ITS ---
INDICATION: Moist, nonproductive cough; adventitious lung sound EXAMINATION/TECHNIQUE: X-RAY - XR Chest 2 Views COMPARISON: Left shoulder x-rays 05/23/2021. FINDINGS: LINES/DEVICES: None. LUNGS: Lung volumes are mildly increased. Right hemidiaphragm is asymmetrically elevated. No airspace opacity, pleural effusion or pneumothorax. Interstitial markings within normal limits. MEDIASTINUM AND CARDIOVASCULAR STRUCTURES: Normal size and contour of the cardiomediastinal silhouette. No evidence of pulmonary vascular congestion. Significant atherosclerosis thoracic aortic arch. BONES AND SOFT TISSUES: Proximal humeral fracture with normal glenohumeral alignment but elevated proximal humerus. RAD/Chest PA and Lateral IMPRESSION: 1. Mildly decreased lung volumes and mild asymmetric elevation right hemidiaphragm. 2. No evidence of acute cardiopulmonary disease. 3. Proximal left humeral fracture. Electronically Signed: Doc Huynh DO at 23:15 EDT ,
[2021-05-31] MEDS: Azithromycin 250 MG Tablet 500 MG PO (23:18)
[2021-05-31 23:30] VITALS: PULSE 71; RESP 18
[2021-05-31] MEDS: Albuterol 2.5 MG/3 ML VIAL.NEB. INHALATION (23:30)
[2021-06-01] MEDS: Polyethylene Glycol 3350 17 GM PACKET PO (05:10)
[2021-06-01] MEDS: Senna/Docusate Sodium 1 Tablet PO ×2 (05:12→17:24)
[2021-06-01] MEDS: Losartan Potassium 25 MG Tablet PO (05:12)
[2021-06-01] MEDS: buPROPion (SR) 100 MG TABLET.SA PO (05:12)
[2021-06-01] MEDS: Venlafaxine XR 75 MG Capsule PO (05:12)
[2021-06-01] MEDS: Levothyroxine 50 MCG Tablet PO (05:13)
[2021-06-01] MEDS: guaiFENesin 600 MG Tablet PO ×2 (05:13→17:24)
[2021-06-01] MEDS: Azithromycin 250 MG Tablet PO (05:14)
[2021-06-01] MEDS: Pantoprazole Sodium 40 MG Tablet PO (05:14)
[2021-06-01 05:22] VITALS: BP 113/70; PULSE 73
[2021-06-01] MEDS: oxyCODONE 5 MG Tablet PO ×2 (08:32→19:26)
[2021-06-01] MEDS: Ondansetron 8 MG Tablet PO (08:35)
[2021-06-01] MEDS: Magnesium Chloride 64 MG Delay Rel.Tablet 128 MG PO ×2 (08:38→17:23)
[2021-06-01] MEDS: Aspirin 81 MG TAB.CHEW PO (08:38)
[2021-06-01] MEDS: Vitamin B Comp W-C Capsule 1 CAP PO (08:39)
[2021-06-01] MEDS: Amiodarone 200 MG Tablet PO (08:39)
[2021-06-01] MEDS: Cyanocobalamin 500 MCG Tablet 1000 MCG PO (08:41)
[2021-06-01 08:49] VITALS: BP 100/50; PULSE 74; RESP 18; O2SAT 96
[2021-06-01 10:00] VITALS: PULSE 69; RESP 18; O2SAT 96
[2021-06-01 15:43] VITALS: BP 109/60; PULSE 75; RESP 19; TEMP 36.9; O2SAT 96
--- NOTE | 2021-06-01 19:33 | NURSING ---
Addendum entered by Adriana Migeul 06/01/21 19:34: Voicemail left for [facility] perinatal social worker regarding patient request for discharge date Original Note: Patient requests information regarding discharge date, states has a helper at home and daughter to assist with care. Pt. notified perinatal social worker to be notified of request. Pt. expresses thanks.
[2021-06-01] MEDS: Acetaminophen 500 MG Tablet 1000 MG PO (22:36)
[2021-06-02 05:37] LABS: Absolute Lymphocyte Count 0.41 X10^3/uL (0.83-4.51); Absolute Neutrophil Count 2.8 X10^3/uL (2.0-7.7); Basophil# 0.04 X10^3/uL; Eosinophil# 0.23 X10^3/uL; Hematocrit 28.2 % (37-47); Hemoglobin 9.6 g/dL (12.0-15.0); Lymphocyte # 0.41 X10^3/ul (0.83-4.51); Lymphocyte % 10.6 % (19-41); Mean Corpuscular Hgb 31.9 pg (27.0-32.0); Mean Corpuscular Volume 93.7 fL (81-99); Mean Platelet Vol. 8.8 fl (6.2-12.0); Monocyte# 0.34 X10^3/uL; Monocyte% 8.8 % (0-10); NRBC Flagged by Analyzer 0 % (0-5); Neutrophil % 72.8 % (47-70); POSITIVE DIFFERENTIAL YES; Platelet Count 294 K/mm3 (150-450); RBC Distribution Width CV 14.6 % (11.6-14.6); RBC Distribution Width SD 49.8 fl (35.1-43.9); Red Blood Count 3.01 M/mm3 (4.2-5.4); White Blood Count 3.9 K/mm3 (4.4-11.0)
[2021-06-02 05:42] LABS: Differential Indicated SCAN CRITERIA MET
[2021-06-02 06:15] LABS: Anion Gap 5 (5-15); BUN 15 mg/dL (7-18); BUN/Creat Ratio 18.5 RATIO (10-20); Calcium,Total 8.5 mg/dL (8.5-10.1); Chloride 100 mmol/L (98-107); Creatinine, Serum 0.81 mg/dL (0.55-1.02); EST Glomerular Filtration Rate 72 mL/min (>60); Est Glom Filt Rate - Afr Amer 87 mL/min (>60); Estimated Creatinine Clearance 47.04 ml/min; Glucose 94 mg/dL (74-106); Potassium 4.6 mmol/L (3.5-5.1); Sodium Level 131 mmol/L (136-145)
[2021-06-02] MEDS: Acetaminophen 500 MG Tablet 1000 MG PO (06:39)
[2021-06-02] MEDS: guaiFENesin 600 MG Tablet PO ×2 (06:40→17:08)
[2021-06-02] MEDS: Venlafaxine XR 75 MG Capsule PO (06:40)
[2021-06-02] MEDS: buPROPion (SR) 100 MG TABLET.SA PO (06:41)
[2021-06-02] MEDS: Levothyroxine 50 MCG Tablet PO (06:41)
[2021-06-02] MEDS: Polyethylene Glycol 3350 17 GM PACKET PO (06:41)
[2021-06-02] MEDS: Pantoprazole Sodium 40 MG Tablet PO (06:42)
[2021-06-02] MEDS: Losartan Potassium 25 MG Tablet PO (06:42)
[2021-06-02] MEDS: Senna/Docusate Sodium 1 Tablet PO ×2 (06:42→17:07)
[2021-06-02] MEDS: Azithromycin 250 MG Tablet PO (06:48)
[2021-06-02] MEDS: Magnesium Chloride 64 MG Delay Rel.Tablet 128 MG PO ×2 (08:22→17:07)
[2021-06-02] MEDS: Vitamin B Comp W-C Capsule 1 CAP PO (08:22)
[2021-06-02] MEDS: Amiodarone 200 MG Tablet PO (08:22)
[2021-06-02] MEDS: Aspirin 81 MG TAB.CHEW PO (08:22)
[2021-06-02] MEDS: Cyanocobalamin 500 MCG Tablet 1000 MCG PO (08:22)
--- NOTE | 2021-06-02 08:35 | CASEMGMT ---
Social Work Received voicemail from dtr that pt and family does not want to pay privately at SNF and will take pt home at DC. Returned call to dtr. Dtr confirmed above and stated she will stay with pt at home. Dtr stated pt is active with [facility] and requesting skilled HHC through [facility]. Ensured dtr feels she will be able to safely care for pt at home - dtr confirmed. Dtr stated she will transport pt at DC. Left message with Neymar at [facility] to update. Will await outcome from insurance update today. SW to continue to follow. Jessica Horton, [employer]GS[employer] BUILDER SALES COMMISSIONS ANALYST
[2021-06-02] MEDS: oxyCODONE 5 MG Tablet PO (10:29)
[2021-06-02 14:43] LABS: Pathologist Review Reviewed
[2021-06-02 16:00] VITALS: BP 137/78; PULSE 64; RESP 16; TEMP 36.3; O2SAT 97
[2021-06-02 20:15] VITALS: PULSE 70; O2SAT 97
[2021-06-03] MEDS: guaiFENesin 600 MG Tablet PO ×2 (05:01→17:09)
[2021-06-03] MEDS: Losartan Potassium 25 MG Tablet PO (05:01)
[2021-06-03] MEDS: Venlafaxine XR 75 MG Capsule PO (05:01)
[2021-06-03] MEDS: Azithromycin 250 MG Tablet PO (05:01)
[2021-06-03] MEDS: Polyethylene Glycol 3350 17 GM PACKET PO (05:01)
[2021-06-03] MEDS: Senna/Docusate Sodium 1 Tablet PO ×2 (05:01→17:10)
[2021-06-03] MEDS: Pantoprazole Sodium 40 MG Tablet PO (05:01)
[2021-06-03] MEDS: buPROPion (SR) 100 MG TABLET.SA PO (05:01)
[2021-06-03] MEDS: Levothyroxine 50 MCG Tablet PO (05:01)
[2021-06-03] MEDS: Amiodarone 200 MG Tablet PO (08:31)
[2021-06-03] MEDS: Vitamin B Comp W-C Capsule 1 CAP PO (08:31)
[2021-06-03] MEDS: Aspirin 81 MG TAB.CHEW PO (08:31)
[2021-06-03] MEDS: Magnesium Chloride 64 MG Delay Rel.Tablet 128 MG PO ×2 (08:32→17:09)
[2021-06-03] MEDS: Cyanocobalamin 500 MCG Tablet 1000 MCG PO (08:32)
[2021-06-03 08:45] VITALS: BP 103/58; PULSE 72
--- NOTE | 2021-06-03 09:28 | CASEMGMT ---
Addendum entered by Jessica Horton 06/04/21 16:49: CURATOR requesting hemiwalker at DC. Referred to [facility]. Original Note: Social Work Spoke with dtr to update her on insurance NRD 06/04 to allow for DC date/plan decision. Dtr and brother are off work Wednesday and requesting DC 06/07. IDT agreeable. That would still allow 3 day notice by [facility]. Dtr to transport. Ordered [facility] PT/OT/SN/[facility]/SW. Notified [facility] ([phone]) of DC plan/date. No DME needs. Plan: DC home with family support 06/07, [facility] PT/OT/SN/[facility]/SW, [facility] Jessica Horton, MOTORBOAT MECHANIC INBOARD/OUTBOARD JAVA WEB APPLICATION DEVELOPER
[2021-06-03] MEDS: Ondansetron 8 MG Tablet PO (09:54)
[2021-06-03 10:00] VITALS: PULSE 70; RESP 18; O2SAT 97
[2021-06-03] MEDS: Acetaminophen 500 MG Tablet 1000 MG PO (13:33)
[2021-06-03 14:13] VITALS: BP 109/60; PULSE 73; RESP 16; TEMP 36.3; O2SAT 98
[2021-06-03 17:35] VITALS: PULSE 75; RESP 20
[2021-06-03] MEDS: Albuterol 2.5 MG/3 ML VIAL.NEB. INHALATION (17:35)
--- NOTE | 2021-06-03 17:49 | CPS ---
Patient began coughing as soon as treatment was placed on patient. Patient coughed continuously until treatment was removed.
--- NOTE | 2021-06-03 19:11 | DS.PCM_ITS ---
Providers Date of Admission: 05/18/21 Primary Care Physician: Dr. Mika Chacon MD Consultations 05/19/21 07:15 Consult: Onc/Wound/photographer model Routine Comment: Reason for Consult:: colostomy- not new Comments:: can't use LT arm 05/21/21 16:13 Consult: Orthopedics Routine Consulting Provider: Chon Nagy Reason for Consult: Left shoulder fracture. EMERGENT Consult: No MD Notified: Yes Date Notified: 05/21/21 Time Notified: 16:13 Method of Notification: Answering Service Reason For Visit: LEFT HUMERUS HEAD FRACTURE Diagnosis Discharge Diagnosis (1) Fracture of surgical neck of left humerus: Status: Acute Code(s): S42.212A - Unspecified displaced fracture of surgical neck of left humerus, initial encounter for closed fracture Qualifiers: Encounter type: initial encounter Fracture type: closed Fracture morphology: 2-part Fracture alignment: displaced Qualified Code(s): S42.222A - 2-part displaced fracture of surgical neck of left humerus, initial encounter for closed fracture Medications at Discharge Home Medications B complex-vitamin C-folic acid 1 cap PO DAILYCM #0 tab 06/03/21 acetaminophen 1,000 mg PO Q6H PRN PRN #0 tab 06/03/21 albuterol sulfate 2.5 mg INHALATION Q2H PRN PRN #0 ml 06/03/21 amiodarone 200 mg PO DAILYCM #0 tab 06/03/21 aspirin 81 mg PO BREAKFAST #0 tab 06/03/21 bupropion HCl 100 mg PO DAILY #0 ea 06/03/21 cyanocobalamin (vitamin B-12) 1,000 mcg PO BREAKFAST #0 tab 06/03/21 levothyroxine 50 mcg PO DAILY@0600 30 Days #30 tab 06/03/21 losartan 25 mg PO DAILY #0 tab 06/03/21 magnesium chloride [Mag 64] 128 mg PO BIDCM #0 tab 06/03/21 ondansetron HCl 8 mg PO Q8H PRN PRN 30 Days #90 tab 06/03/21 oxycodone 5 mg PO Q4H PRN PRN 3 Days #18 tab 06/03/21 pantoprazole 40 mg PO DAILY #0 tab 06/03/21 sennosides-docusate sodium [Stool Softener-Stimulant Laxat] 1 tab PO BID #0 tab 06/03/21 venlafaxine 75 mg PO DAILY #0 cap 06/03/21 Hospital Course Operations None Procedures None Summary of Care Provided Minutes Spent on Discharge: 35 Hospital Course: 80 year old female with below past medical history hospitalized for fall, left shoulder fracture treated with sling, complicated by dizziness secondary to orthostatic hypotension, admitted to TCU with debility, here for rehabilitation, strengthening, prior to discharge home alone. Discharge home with family support 06/07/2021, [facility] PT/OT/SN/AGU[facility]/SW, [facility]. Physical Exam Const alert General Appearance: cooperative HEENT normocephalic Eyes PERRL and EOMs intact bilaterally Neck supple, no JVD and no carotid bruits Resp normal respiratory effort, normal air movement and clear to auscultation bilaterally Cardio regular rate and regular rhythm GI normal to inspection, nondistended, normoactive bowel sounds, non-tender and non-distended Extremity normal capillary refill Extremity Narrative: Left upper extremity sling. General Extremity: Negative for edema Skin no rashes or lesions noted General Skin Exam: no breakdown Psych affect normal Appearance: appropriate Weight / BMI Weight Weight: 63.957 kg Body Mass Index (BMI) 23.3 ABG / Lab / Microbiology Data Result Diagrams: 06/02/21 05:25 06/02/21 05:25 Microbiology: Microbiology 05/29/21 Unknown Nasal Secretion SARS-CoV-2 Antigen (Rapid) - Final 05/25/21 13:43 Nasal Secretion SARS-CoV-2 Antigen (Rapid) - Final 05/19/21 08:25 Nasal Secretion SARS-CoV-2 Antigen (Rapid) - Final D/C Instructions Discharge Diet: No restrictions Discharge Activity: Return to Normal Activity, May Shower and Use Walker Weight Bearing Status: No weight bearing (Left upper extremity.) Call your doctor if you observe: Fever of 101 or Higher, Inability to urinate, Inability to have a bowel movement, Shortness of breath, Dizziness, Fainting spells, Swelling in the ankles, Chest pain and Uncontrolled pain Additional Instructions: Discharge home with family support 06/07/2021, [facility] PT/OT/SN/AGUILAR/SW, [facility]. Please Follow Up With: Dr. Beltrán When: As scheduled. Meaningful Use Info Meaningful Use Diagnoses (Choose all that apply): None applicable Discharge Plan Admission Admit Date/Time: 05/18/21 18:22 Primary Reason for Your Visit: Debility. Attending Provider: Edgardo Maldonado Chi Primary Care Provider: Mika Chacon Consulting Providers: Chon Nagy Instructions Additional Instructions / Restrictions: Discharge home with family support 06/07/2021, [facility] PT/OT/SN/AGUILAR/SW, [facility]. Discharge Orders/Prescriptions Prescriptions: New acetaminophen 500 mg Tablet 1,000 mg PO Q6H PRN PRN (Reason: Pain Score 1-5) Qty: 0 RF: 0 venlafaxine 75 mg Capsule,Extended Release 24hr 75 mg PO DAILY Qty: 0 RF: 0 albuterol sulfate 2.5 mg /3 mL (0.083 %) Solution For Nebulization 2.5 mg inhalation Q2H PRN PRN (Reason: SHORTNESS OF BREATH/wheezing) Qty: 0 RF: 0 amiodarone 200 mg Tablet 200 mg PO DAILYCM Qty: 0 RF: 0 ondansetron HCl 8 mg Tablet 8 mg PO Q8H PRN PRN (Reason: NAUSEA/VOMITING) 30 Days Qty: 90 RF: 0 sennosides-docusate sodium [Stool Softener-Stimulant Laxat] 8.6-50 mg Tablet 1 tab PO BID Qty: 0 RF: 0 bupropion HCl 100 mg Tablet Sustained-Release 12 Hr 100 mg PO DAILY Qty: 0 RF: 0 cyanocobalamin (vitamin B-12) 500 mcg Tablet 1,000 mcg PO BREAKFAST Qty: 0 RF: 0 levothyroxine 50 mcg Tablet 50 mcg PO DAILY@0600 30 Days Qty: 30 RF: 0 pantoprazole 40 mg Tablet,Delayed Release (Dr/Ec) 40 mg PO DAILY Qty: 0 RF: 0 losartan 25 mg Tablet 25 mg PO DAILY Qty: 0 RF: 0 aspirin 81 mg Tablet,Chewable 81 mg PO BREAKFAST Qty: 0 RF: 0 oxycodone 5 mg Tablet 5 mg PO Q4H PRN PRN (Reason: Pain Score 6-10) 3 Days Qty: 18 RF: 0 B complex-vitamin C-folic acid 400 mcg Tablet 1 cap PO DAILYCM Qty: 0 RF: 0 Mag 64 64 mg Tablet,Delayed Release (Dr/Ec) 128 mg PO BIDCM Qty: 0 RF: 0 Referrals / Follow Up: Mika Chacon MD [Primary Care Provider] - Disposition Disposition (needs filled in before D/C Order can be placed): Home Health Service
[2021-06-04] MEDS: Acetaminophen 500 MG Tablet 1000 MG PO (00:27)
[2021-06-04] MEDS: buPROPion (SR) 100 MG TABLET.SA PO (05:57)
[2021-06-04] MEDS: Venlafaxine XR 75 MG Capsule PO (05:57)
[2021-06-04] MEDS: Levothyroxine 50 MCG Tablet PO (05:57)
[2021-06-04] MEDS: Polyethylene Glycol 3350 17 GM PACKET PO (05:57)
[2021-06-04] MEDS: Azithromycin 250 MG Tablet PO (05:58)
[2021-06-04] MEDS: Pantoprazole Sodium 40 MG Tablet PO (05:58)
[2021-06-04] MEDS: Losartan Potassium 25 MG Tablet PO (05:58)
[2021-06-04] MEDS: guaiFENesin 600 MG Tablet PO ×2 (05:58→17:00)
[2021-06-04] MEDS: Senna/Docusate Sodium 1 Tablet PO ×2 (05:58→16:59)
[2021-06-04] MEDS: oxyCODONE 5 MG Tablet PO ×2 (06:05→17:49)
[2021-06-04] MEDS: Cyanocobalamin 500 MCG Tablet 1000 MCG PO (08:06)
[2021-06-04] MEDS: Aspirin 81 MG TAB.CHEW PO (08:07)
[2021-06-04] MEDS: Magnesium Chloride 64 MG Delay Rel.Tablet 128 MG PO ×2 (08:07→16:59)
[2021-06-04] MEDS: Amiodarone 200 MG Tablet PO (08:07)
[2021-06-04] MEDS: Vitamin B Comp W-C Capsule 1 CAP PO (08:07)
[2021-06-04 15:41] VITALS: BP 132/74; PULSE 66; RESP 16; TEMP 36.8; O2SAT 97
[2021-06-05] MEDS: Venlafaxine XR 75 MG Capsule PO (05:33)
[2021-06-05] MEDS: Losartan Potassium 25 MG Tablet PO (05:33)
[2021-06-05] MEDS: Pantoprazole Sodium 40 MG Tablet PO (05:34)
[2021-06-05] MEDS: Polyethylene Glycol 3350 17 GM PACKET PO (05:34)
[2021-06-05] MEDS: guaiFENesin 600 MG Tablet PO ×2 (05:34→17:44)
[2021-06-05] MEDS: buPROPion (SR) 100 MG TABLET.SA PO (05:34)
[2021-06-05] MEDS: Levothyroxine 50 MCG Tablet PO (05:34)
[2021-06-05] MEDS: Senna/Docusate Sodium 1 Tablet PO ×2 (05:34→17:44)
[2021-06-05 05:37] VITALS: BP 138/88; PULSE 68
[2021-06-05] MEDS: Ondansetron 8 MG Tablet PO (08:03)
[2021-06-05] MEDS: Magnesium Chloride 64 MG Delay Rel.Tablet 128 MG PO ×2 (08:03→17:44)
[2021-06-05] MEDS: Cyanocobalamin 500 MCG Tablet 1000 MCG PO (08:04)
[2021-06-05] MEDS: Aspirin 81 MG TAB.CHEW PO (08:04)
[2021-06-05] MEDS: Vitamin B Comp W-C Capsule 1 CAP PO (08:04)
[2021-06-05] MEDS: Amiodarone 200 MG Tablet PO (08:04)
[2021-06-05 08:08] VITALS: BP 130/78; PULSE 65
[2021-06-05 13:10] VITALS: PULSE 65; RESP 18; O2SAT 97
[2021-06-05] MEDS: oxyCODONE 5 MG Tablet PO (15:12)
--- NOTE | 2021-06-05 15:28 | MDS.RN ---
Completed pain interview for ANITRA 06/07/21
[2021-06-05 15:36] VITALS: BP 115/63; PULSE 67; RESP 16; TEMP 36.1; O2SAT 97
[2021-06-05] MEDS: Acetaminophen 500 MG Tablet 1000 MG PO (21:05)
[2021-06-06] MEDS: Polyethylene Glycol 3350 17 GM PACKET PO (05:28)
[2021-06-06] MEDS: guaiFENesin 600 MG Tablet PO (05:30)
[2021-06-06] MEDS: Venlafaxine XR 75 MG Capsule PO (05:30)
[2021-06-06] MEDS: Losartan Potassium 25 MG Tablet PO (05:30)
[2021-06-06] MEDS: Pantoprazole Sodium 40 MG Tablet PO (05:30)
[2021-06-06] MEDS: Levothyroxine 50 MCG Tablet PO (05:30)
[2021-06-06] MEDS: Senna/Docusate Sodium 1 Tablet PO ×2 (05:30→16:15)
[2021-06-06] MEDS: buPROPion (SR) 100 MG TABLET.SA PO (05:31)
[2021-06-06 05:34] VITALS: BP 147/82; PULSE 67
[2021-06-06] MEDS: Magnesium Chloride 64 MG Delay Rel.Tablet 128 MG PO ×2 (08:14→16:15)
[2021-06-06] MEDS: Vitamin B Comp W-C Capsule 1 CAP PO (08:15)
[2021-06-06] MEDS: Aspirin 81 MG TAB.CHEW PO (08:15)
[2021-06-06] MEDS: Cyanocobalamin 500 MCG Tablet 1000 MCG PO (08:15)
[2021-06-06] MEDS: Amiodarone 200 MG Tablet PO (08:15)
--- NOTE | 2021-06-06 09:35 | CASEMGMT ---
Social Work BIMS and PHQ-9 completed for MDS assessment. Jessica Horton, RN MOBILE ERADICATOR
[2021-06-06] MEDS: oxyCODONE 5 MG Tablet PO ×2 (10:16→15:35)
[2021-06-06 13:45] VITALS: BP 113/68; PULSE 66; RESP 16; TEMP 36.6; O2SAT 96
[2021-06-06] MEDS: Acetaminophen 500 MG Tablet 1000 MG PO (22:03)
[2021-06-07] MEDS: Levothyroxine 50 MCG Tablet PO (06:03)
[2021-06-07] MEDS: buPROPion (SR) 100 MG TABLET.SA PO (06:03)
[2021-06-07] MEDS: Polyethylene Glycol 3350 17 GM PACKET PO (06:03)
[2021-06-07] MEDS: Venlafaxine XR 75 MG Capsule PO (06:04)
[2021-06-07] MEDS: Losartan Potassium 25 MG Tablet PO (06:04)
[2021-06-07] MEDS: Pantoprazole Sodium 40 MG Tablet PO (06:04)
[2021-06-07] MEDS: Senna/Docusate Sodium 1 Tablet PO (06:04)
[2021-06-07 06:08] VITALS: PULSE 75; RESP 14; O2SAT 98
[2021-06-07 06:13] VITALS: BP 148/78; PULSE 75; RESP 14; TEMP 36.4; O2SAT 98
[2021-06-07] MEDS: Aspirin 81 MG TAB.CHEW PO (08:32)
[2021-06-07] MEDS: Cyanocobalamin 500 MCG Tablet 1000 MCG PO (08:32)
[2021-06-07] MEDS: Magnesium Chloride 64 MG Delay Rel.Tablet 128 MG PO (08:32)
[2021-06-07] MEDS: Amiodarone 200 MG Tablet PO (08:32)
[2021-06-07] MEDS: Vitamin B Comp W-C Capsule 1 CAP PO (08:32)
[2021-06-07 11:15] VITALS: BP 93/73; PULSE 71; RESP 16; TEMP 36.2; O2SAT 97
== END 2021-06-07 11:00 | disposition home health service (06) | DRG 560 ==
PROVIDERS: Admitting Provider Family Medicine Geriatric Medicine; PCP Internal Medicine; Visit Provider Family Medicine Geriatric Medicine
DX: S42.92XD Fracture of left shoulder girdle, part unspecified, subsequent encounter for fracture with routine healing (principal); E87.1 Hypo-osmolality and hyponatremia; I48.91 Unspecified atrial fibrillation; B35.4 Tinea corporis; E03.9 Hypothyroidism, unspecified; J44.9 Chronic obstructive pulmonary disease, unspecified; E53.8 Deficiency of other specified B group vitamins; W19.XXXD Unspecified fall, subsequent encounter; I10 Essential (primary) hypertension; K21.9 Gastro-esophageal reflux disease without esophagitis; Z87.891 Personal history of nicotine dependence; F32.A Depression, unspecified
CPT/HCPCS: 36415; 71046; 73030; 80048; 85025; 87426; 87811; 94640; 97110; 97116; 97162; 97166; 97530; 97535; 97802